=== PATIENT | female | born 1985 | race Caucasian/White ===

== ENCOUNTER 2023-02-26 10:46 | Outpatient (CLI) | payer BC, OTHER, SELFPAY ==
--- NOTE | ~2023-02-26 | US_ITS ---
US breast LT limited DATE: 02/26/2023 11:19 INDICATION: Left painful lump. History of abscess. TECHNIQUE: The patient refused mammography due to pain. Real-time and color flow imaging was performed at the area of clinical complaint. COMPARISON: None FINDINGS: At the area of clinical complaint at T10-11 o'clock near the nipple there is an oval parall el circumscribed heterogeneous hypoechoic approximately 13.5 x 8 x 15.4 mm lesion with prominent thro ugh transmission and posterior enhancement. Mild adjacent vascularity is noted. This is likely a comp licated cystic lesion, including possible abscess. Differential diagnosis includes fibroadenoma. IMPRESSION: BI-RADS Category 3: Probably benign finding. Probable abscess. Short-term follow-up imaging is recommended after appropriate therapy. Reviewed, dictated and finalized at [facility]. Reviewed, dictated and finalized at [facility].
== END 2023-02-26 10:47 | disposition home or self-care (01) ==
LOC: CHSIMG 10:56
PROVIDERS: PCP Physician Assistant; Visit Provider Physician Assistant
DX: N61.1 Abscess of the breast and nipple (principal); R91.1 Solitary pulmonary nodule
CPT/HCPCS: 76642

== ENCOUNTER 2023-03-26 13:39 | Outpatient (CLI) | payer BC, OTHER, SELFPAY ==
--- NOTE | ~2023-03-26 | MM_ITS ---
EXAMINATION: MM screening silvina BI w adwoa HISTORY: Screening mammogram TECHNIQUE: Craniocaudal and mediolateral oblique 3-D tomosynthesis images were obtained and synthetic 2-D images were generated. CAD analysis was submitted and interpreted. COMPARISON: None, baseline BREAST PARENCHYMAL COMPOSITION: There are scattered areas of fibroglandular density. FINDINGS: No suspicious mass, calcification, or architectural distortion are identified in either surinder ast to suggest malignancy. IMPRESSION: 1. No mammographic evidence of malignancy. 2. Recommend routine screening mammography in one year. BI-RADS Category 1: Negative Reviewed, dictated and finalized at [facility].
== END 2023-03-26 13:40 | disposition home or self-care (01) ==
LOC: CHSIMG 13:42
PROVIDERS: PCP Family Medicine; Visit Provider Registered Nurse
DX: Z12.31 Encounter for screening mammogram for malignant neoplasm of breast (principal)
CPT/HCPCS: 77063; 77067